=== PATIENT | male | born 1990 | race Caucasian/White ===

== ENCOUNTER 2019-03-21 11:11 | Emergency (ER) | payer MEDICAID ==
[~2019-03-21] VITALS: Ht 175.3 cm; Wt 138.2 kg
[2019-03-21 11:16] VITALS: BP 136/88
[2019-03-21] MEDS ORDERED: IBUP-1984 PO (13:34)
== END 2019-03-21 13:54 | disposition home or self-care (01) ==
LOC: ER 11:13
DX: M25.531 Pain in right wrist (principal); Z79.1 Long term (current) use of non-steroidal anti-inflammatories (NSAID); X58.XXXA Exposure to other specified factors, initial encounter; Y93.89 Activity, other specified; Y92.89 Other specified places as the place of occurrence of the external cause; Y99.0 Civilian activity done for income or pay
CPT/HCPCS: 99282